=== PATIENT | female | born 1990 | race Caucasian/White ===

== ENCOUNTER 2025-03-25 11:33 | Outpatient (CLI) | payer OTHER | END 2025-03-25 12:17 | disposition home or self-care (01) | LOC: NST 11:33 | PROVIDERS: ATTEND Obstetrics & Gynecology Gynecology | DX: Z34.83 Encounter for supervision of other normal pregnancy, third trimester (principal) ==

== ENCOUNTER 2025-04-22 13:36 | Inpatient (IN) | payer OTHER ==
[~2025-04-22] VITALS: Ht 160 cm; Wt 2.7 kg
[2025-04-22] MEDS ORDERED: PRENATABS FA T1 EACH PO (13:37)
[2025-04-22 13:46] LABS: BASO % 0.4 % (0.1-1.2); EOS # 0.15 (0.04-0.54); EOS % 1.8 % (0.7-7.0); LYMPH # 1.69 (1.18-3.74); LYMPH % 20.7 % (19.3-53.1); MEAN PLATELET VOLUME 10.80 fl (9.4-12.4); MONO # 0.61 (0.24-0.82); MONO % 7.5 % (4.7-12.5); NEUT # 5.65 (1.56-6.13); NEUT % 69.4 % (34.0-71.1); RED CELL DISTRIBUTION WIDTH 12.3 % (11.6-14.4)
[2025-04-22 14:06] LABS: INR 0.97
[2025-04-22 14:51] LABS: ALT/SGPT 43.0 U/L (12-78); AST/SGOT 32.0 U/L (15-37); BILIRUBIN TOTAL 0.3 mg/dL (0.3-1.2); BUN CREA RATIO 13.0 (7.0-25.0); CREATININE SERUM 0.52 mg/dL (0.55-1.02); GFR 133.43; GLOBULINA 3.5 G/DL (2.4-3.5); GLUCOSE FASTING 70.0 mg/dL (65-100); OSMOLALITY SERUM 278.0 MOSM/KG (275-295)
[2025-05-01 05:23] VITALS: BP 110/64
[2025-05-01] MEDS ORDERED: FOLIC ACID20 MG (06:22)
[2025-05-01] MEDS ORDERED: CITRIC ACID/SODIUM CITRATE 30 ML BLIST.PACK PO ONE (06:54)
[2025-05-01] MEDS ORDERED: CEFOXITIN SODIUM 2,000 MG VIAL IV ONE (06:54)
[2025-05-01] MEDS ORDERED: OXYTOCIN 10 UNITS/ML VIAL ONE ×2 (07:14→13:45)
[2025-05-01] MEDS ORDERED: ERYTHROMYCIN BASE OPHT 1GM EACH TUBE OP ONE (07:14)
[2025-05-01] MEDS ORDERED: OXYTOCIN 1,000 ML IV SCH (10:45)
[2025-05-01] MEDS ORDERED: MORPHINE SULFATE 4 MG/ML VIAL IV PRN ×2 (10:45→15:02)
[2025-05-01] MEDS ORDERED: GABAPENTIN 300 MG CAPSULE PO SCH (13:00)
[2025-05-01 14:25] VITALS: BP 117/60
[2025-05-01] MEDS ORDERED: KETOROLAC TROMETHAMINE 30 MG VIAL IV PRN (15:00)
[2025-05-01 16:00] VITALS: BP 111/72
[2025-05-02 00:05] VITALS: BP 97/60
[2025-05-02 08:00] VITALS: BP 112/67
[2025-05-02 11:17] LABS: BASO % 0.2 % (0.1-1.2); EOS # 0.05 (0.04-0.54); EOS % 0.5 % (0.7-7.0); LYMPH # 1.64 (1.18-3.74); LYMPH % 15.2 % (19.3-53.1); MEAN PLATELET VOLUME 10.90 fl (9.4-12.4); MONO # 0.94 (0.24-0.82); MONO % 8.7 % (4.7-12.5); NEUT # 8.11 (1.56-6.13); NEUT % 75.0 % (34.0-71.1); RED CELL DISTRIBUTION WIDTH 12.5 % (11.6-14.4)
[2025-05-02 18:09] VITALS: BP 108/70
[2025-05-03] VITALS: BP 101/57
[2025-05-03] MEDS ORDERED: OxyCODONE HCL 5 MG TABLET (ROXICODONE) PO PRN (06:00)
[2025-05-03 08:43] VITALS: BP 110/72
== END 2025-05-03 17:06 | disposition home or self-care (01) | DRG 785 ==
LOC: OB/GYN 05-01 07:00 → O/R 05-01 07:00 → OB/GYN 05-01 11:30
PROVIDERS: Obstetrics & Gynecology; ADMIT Obstetrics & Gynecology Gynecology; ATTEND Obstetrics & Gynecology Gynecology
PROC: 0UB70ZZ Excision of Bilateral Fallopian Tubes, Open Approach (ICD-10-PCS; 2025-05-01)
PROC: 0DNW0ZZ Release Peritoneum, Open Approach (ICD-10-PCS; 2025-05-01)
PROC: 4A1HXCZ Monitoring of Products of Conception, Cardiac Rate, External Approach (ICD-10-PCS; 2025-05-01)
PROC: 10D00Z1 Extraction of Products of Conception, Low, Open Approach (ICD-10-PCS; principal; 2025-05-01 11:30)
DX: O99.892 Other specified diseases and conditions complicating childbirth (principal); N73.6 Female pelvic peritoneal adhesions (postinfective); O34.211 Maternal care for low transverse scar from previous cesarean delivery; Z3A.38 38 weeks gestation of pregnancy; Z37.0 Single live birth; Z30.2 Encounter for sterilization